=== PATIENT | male | born 1990 | race Two or more races ===

== ENCOUNTER → 2024-09-24 | Outpatient (CLI) | payer MEDICAID, SELFPAY ==
--- NOTE | 2024-09-24 12:47 | XR_ITS ---
Examination: Pelvic ultrasound, transabdominal, complete Technique: Transabdominal ultrasound of the pelvis performed using grayscale imaging Date and time of exam: September 24, 2024 1357 hours INDICATIONS: Right-sided testicular and pelvic pain one week FINDINGS: No pelvic mass No bladder mass or bladder calculi Bladder prevoid volume 317 cc Prostate volume 11.05 cc no prostate nodules IMPRESSION: No pelvic mass
--- NOTE | 2024-09-24 12:47 | XR_ITS ---
Examination: Testicular sonography complete TECHNIQUE: Grayscale sonographic images testes, assessment arterial inflow venous outflow Doppler spectral analysis carful analysis Exam date and time: September 24, 2024 1407 hours INDICATIONS: Right testicular pain beginning one week ago FINDINGS: Right testis 3.2 cm epididymis 0.8 cm Right epididymal cyst 5 mm Arterial flow testicle. No testicular mass Left testis 3.2 cm epididymis 1.0 cm 3 mm left epididymal cyst Arterial flow testicle. No testicular mass IMPRESSION: No testicular torsion or testicular mass Small bilateral benign epididymal cysts
== END | disposition home or self-care (01) ==
PROVIDERS: PCP Nurse Practitioner; Referring Provider Nurse Practitioner; Visit Provider Nurse Practitioner
DX: R10.2 Pelvic and perineal pain (principal); N50.3 Cyst of epididymis
CPT/HCPCS: 76856; 76870

== ENCOUNTER → 2024-12-15 | Outpatient (CLI) | payer MEDICAID, SELFPAY ==
--- NOTE | 2024-12-15 11:42 | XR_ITS ---
Examination: Shoulder,left, 3 views Technique: Shoulder AP internal rotation, AP external rotation, Y view shoulder, 3 views Exam date and time :December 15, 2024 1207 hours FINDINGS: Mild osteopenia Moderate narrowing glenohumeral joint No shoulder fracture or dislocation No calcific tendinitis IMPRESSION: Moderate narrowing glenohumeral joint
== END | disposition home or self-care (01) ==
PROVIDERS: PCP Nurse Practitioner; Referring Provider Nurse Practitioner; Visit Provider Nurse Practitioner
DX: M25.812 Other specified joint disorders, left shoulder (principal)
CPT/HCPCS: 73030

== ENCOUNTER 2024-12-28 08:20 | Day surgery (SDC) | payer MEDICAID, SELFPAY ==
[2024-12-24 11:12] VITALS: BMI 18.8
[2024-12-24 12:25] LABS: Basophils # (Auto) 0.1 Thou/mm3 (0.0-0.2); Basophils % (Auto) 1 % (0-2.5); Eosinophils # (Auto) 0.4 Thou/mm3 (0.0-0.5); Eosinophils % (Auto) 7 % (0-10); Hematocrit 42.3 % (41.0-53.0); Hemoglobin 15.2 g/dL (13.5-16.0); Immature Granulocytes Auto 0.01 Thou/mm3 (0.00-0.00); Lymphocytes # (Auto) 2.2 Thou/mm3 (1.0-4.8); Lymphocytes % (Auto) 39 % (10-50); Mean Corpuscular HGB Conc 35.9 g/dl (31.0-37.0); Mean Corpuscular Hemoglobin 30.2 pg (25.0-35.0); Mean Corpuscular Volume 84 fL (80-100); Monocytes # (Auto) 0.4 Thou/mm3 (0.0-0.8); Monocytes % (Auto) 7 % (0-12); Neutrophils # (Auto) 2.6 Thou/mm3 (1.8-7.7); Neutrophils % (Auto) 46 % (37-80); Nucleated Red Blood Cell # 0.00 Thou/mm3 (0.00-0.00); Nucleated Red Blood Cell % 0 /100 WBC (0); Platelet Count 233 Thou/mm3 (140-440); RDW Standard Deviation 35.9 fL (35.1-43.9); Red Blood Count 5.04 Miln/mm3 (4.50-5.90); White Blood Count 5.6 Thou/mm3 (3.8-10.6)
[2024-12-24 12:40] LABS: Anion Gap 10 (7-16); BUN/Creatinine Ratio 9 Ratio (12-20); Blood Urea Nitrogen 10 mg/dL (9-23); Calcium 9.6 mg/dL (8.3-10.6); Carbon Dioxide 29.2 mMol/L (20.0-31.0); Chloride 103 mMol/L (98-107); Creatinine (Component) 1.1 mg/dL (0.6-1.3); Estimated Creatinine Clearance 69.6 mL/min (>60); Glucose 106 mg/dL (74-106); Osmolality,Calculated 282 (275-295); Potassium 4.6 mMol/L (3.4-5.1); Sodium 142 mMol/L (136-145); eGFR > 60 See Note
--- NOTE | 2024-12-27 14:46 | SUR.PREOP ---
Pt notified to come in at 0830 tomorrow.
[2024-12-28] VITALS (7 sets, daily range): BP systolic 121–133; BP diastolic 70–91; PULSE 57–86; RESP 12–20; TEMP 36.3–36.9; O2SAT 100; BMI 18.4
--- NOTE | 2024-12-28 10:31 | PD.SUROPNT ---
Date of Procedure 12/28/24 Pre Op Diagnosis Right inguinal hernia Post Op Diagnosis Direct right inguinal hernia Procedure Right inguinal hernia repair with mesh Findings Patient was found to have direct right inguinal hernia Procedure Description Patient brought into the operating room in supine position. After administration of general endotracheal anesthesia, patient's right groin was shaved, prepped and draped in standard surgical manner. The right inguinal crease was anesthetized with half percent Marcaine. An approximately 5 cm incision was made and dissection was carried to subcutaneous tissue. The Tommy's fascia was divided and the external oblique aponeurosis was opened towards the external ring. The hernia sac and the spermatic cord structures were from the posterior aspect of the external oblique aponeurosis at the level of pubic tubercle. The hernia sac was then meticulously dissected off the spermatic cord structures at the level of internal ring. Patient was found to have direct right inguinal hernia. The defect was closed with interrupted [id number] sutures using 0 Vicryl. The floor of inguinal canal was then reconstructed with ultra Pro proceed mesh. The mesh was secured with running 2-0 Prolene suture. The mesh secured medially to the pubic tubercle, superiorly into the conjoin tendon, inferiorly and to the shelving edge of inguinal ligament, the mesh was placed around the cord structures and tacked under the external oblique aponeurosis laterally. The area was copiously and thoroughly washed and irrigated, all the fluids were suctioned and the suction fluid returned clear. Hemostasis was adequate and satisfactory. External oblique aponeurosis was closed with running 2-0 Vicryl suture, and Tommy's fascia was closed with interrupted suture using 3-0 Vicryl. The incision was closed with 4-0 Monocryl in subcutaneous fashion. Instruments, needles and sponge counts were reported to be correct ?2. Patient tolerated the procedure well. He was extubated, breathing spontaneously and without difficulty and was transferred to postanesthesia care in stable condition. Anesthesia GETA and local Pathology / specimen None Estimated Blood Loss 5 Condition Stable Disposition PACU Surgeon Mati Peguero MD Surgical Staff Operation Date: 12/28/24 10:30 Case Staff MUSIC LIBRARY ASSISTANT: Skyler Vila RNpreprint analyst: Markos Redmond
--- NOTE | 2024-12-28 10:36 | SUR.PHASEI ---
1036 Patient arrived to recovery resting comfortably in [facility], LMA in place; on oxygen 8L via nasal cannula-inserted into LMA, breathing unlabored, vital signs stable, dressing intact to right groin; dermabond, gauze, medipore tape, no bleeding noted, report received from Sunny SHI and Karis NOLAND
[2024-12-28] MEDS: ACETAMINOPHEN IVPB 1,000 MG/100 ML VIAL 250 MG IV (10:56)
--- NOTE | 2024-12-28 11:32 | SUR.PHASEII ---
1132 Patient meets discharge criteria from recovery, awake and alert, breathing unlabored, vital signs stable, denies pain, dressing intact; no bleeding noted, dressing intact; no bleeding noted, abdominal binder applied to patient per MD order, patient assisted with dressing into his clothing by his , eating ice chips; tolerating well, discharge instructions given to patient and patients , signed discharge instructions. Patient given all his belongings prior to discharge, transported via wheelchair and left in a private vehicle.
== END 2024-12-28 11:32 | disposition home or self-care (01) ==
PROVIDERS: PCP Nurse Practitioner; Referring Provider Surgery; Visit Provider Surgery
PROC: (CPT 49505; principal; 2024-12-28 10:15)
DX: K40.90 Unilateral inguinal hernia, without obstruction or gangrene, not specified as recurrent (principal)
CPT/HCPCS: 49505; 36415; 80048; 85025; A4217; A4649; C1781; J0131; J2250; J2704; J3010; J3490

== ENCOUNTER → 2025-03-09 | Outpatient (CLI) | payer MEDICAID, SELFPAY ==
--- NOTE | 2025-03-09 11:30 | XR_ITS ---
Examination: Abdomen sonogram, Limited Date and time of exam: March 09, 2025, 1151 hours INDICATIONS: Abdominal pain 3 months post abdominal hernia surgery repair Technique: Real-time hoyt scale transabdominal sonographic images of the upper abdomen obtained. Findings: Normal gallbladder. Normal common bile duct 0.1 cm. Pancreatic head 1.3 cm. Hepatomegaly 17.8 cm no focal liver lesions Normal hepatopedal portal venous oh Patent IVC. IMPRESSION: Normal gallbladder Moderate hepatomegaly.
== END | disposition home or self-care (01) ==
PROVIDERS: PCP Nurse Practitioner; Referring Provider Nurse Practitioner; Visit Provider Nurse Practitioner
DX: R16.0 Hepatomegaly, not elsewhere classified (principal)
CPT/HCPCS: 76705